=== PATIENT | male | born 1995 | race Caucasian/White ===

== ENCOUNTER 2021-02-06 12:27 | Emergency (ER) | payer MEDICAID ==
[~2021-02-06] VITALS: Ht 182.9 cm; Wt 122.0 kg
[2021-02-06 14:13] LABS: BASOPHILS % 1.1 % (0.0-2.0); EOSINOPHILS % 2.9 % (0.0-5.0); HEMATOCRIT. 47.2 % (42.0-52.0); HEMOGLOBIN. 15.9 g/dL (14.0-18.0); LYMPHOCYTES % 19.6 % (20.0-50.0); MEAN CORPUSCULAR HEMOGLOBIN 27.5 pg (28.0-32.0); MEAN CORPUSCULAR VOLUME 81.4 fL (80.0-94.0); MEAN PLATELET VOLUME 7.6 fl (7.4-10.4); NEUTROPHILS % 68.4 % (40.0-76.0); PLATELET 309 x1000/uL (130-400); RED CELL DISTRIBUTION WIDTH 13.6 % (11.6-14.6)
[2021-02-06 14:23] LABS: CHLORIDE 108 mEq/L (98-107)
[2021-02-06] MEDS ORDERED: IBUP-2029 MT (15:34)
[2021-02-06 16:10] VITALS: BP 138/96
== END 2021-02-06 16:30 | disposition home or self-care (01) ==
LOC: ER 12:27
DX: R07.89 Other chest pain (principal); R10.32 Left lower quadrant pain; I10 Essential (primary) hypertension
CPT/HCPCS: 36415; 71045; 80053; 84484; 85025; 85379; 93005; 99285

== ENCOUNTER 2021-09-08 10:20 | Emergency (ER) | payer MEDICAID ==
[~2021-09-08] VITALS: Ht 182.9 cm; Wt 136.0 kg
[~2021-09-08 10:20] MED LIST: IBUP-2029 MT
[2021-09-08 10:48] LABS: BASOPHILS % 0.7 % (0.0-2.0); EOSINOPHILS % 0.1 % (0.0-5.0); HEMOGLOBIN. 16.5 g/dL (14.0-18.0); LYMPHOCYTES % 13.6 % (20.0-50.0); MEAN CORPUSCULAR VOLUME 80.1 fL (80.0-94.0); MEAN PLATELET VOLUME 8.1 fl (7.4-10.4); MONOCYTES % 6.9 % (2.0-8.0); NEUTROPHILS % 78.7 % (40.0-76.0); PLATELET 276 x1000/uL (130-400); RED BLOOD CELL COUNT 6.12 mill/uL (4.7-6.1); RED CELL DISTRIBUTION WIDTH 13.9 % (11.6-14.6)
[2021-09-08 11:00] LABS: CHLORIDE 108 mEq/L (98-107)
[2021-09-08 11:14] LABS: ETHANOL BLOOD < 10 mg/dL
[2021-09-08] MEDS: DIVALPROEX SODIUM 250MG DR TABLET PO SCH ×2 (12:30→21:00)
[2021-09-08] MEDS: OLANZAPINE 5MG TABLET PO SCH ×2 (12:30→21:00)
[2021-09-08 12:34] LABS: CLARITY URINE CLEAR (CLEAR); COLOR URINE YELLOW (YELLOW); KETONES URINE NEGATIVE (NEGATIVE); LEUKOCYTE ESTERASE URINE NEGATIVE (NEGATIVE); NITRITE URINE NEGATIVE (NEGATIVE); OCCULT BLOOD URINE NEGATIVE (NEGATIVE); PROTEIN URINE 1+ (NEGATIVE); SPECIFIC GRAVITY URINE 1.013 (1.005-1.030); UROBILINOGEN URINE 0.2 E.U./dL (0.2-1.0)
[2021-09-08 12:55] LABS: *AMPHETAMINES SCREEN URINE NEGATIVE (NEGATIVE); *BARBITURATES SCREEN URINE NEGATIVE (NEGATIVE); *BENZODIAZEPINES SCREEN URINE NEGATIVE (NEGATIVE); *COCAINE SCREEN URINE NEGATIVE (NEGATIVE); CANNABINOID URINE SCREEN NEGATIVE (NEGATIVE); METHADONE URINE SCREEN NEGATIVE (NEGATIVE); OPIATES URINE SCREEN NEGATIVE (NEGATIVE); PHENCYCLIDINE URINE SCREEN NEGATIVE (NEGATIVE)
[2021-09-09] MEDS: DIVALPROEX SODIUM 250MG DR TABLET PO SCH (09:47)
[2021-09-09] MEDS: OLANZAPINE 5MG TABLET PO SCH (09:47)
[2021-09-09 20:56] VITALS: BP 138/87
== END 2021-09-09 21:38 ==
LOC: ER 10:20
DX: F23 Brief psychotic disorder (principal); R45.850 Homicidal ideations; I10 Essential (primary) hypertension; Z20.822 Contact with and (suspected) exposure to COVID-19
CPT/HCPCS: 36415; 80053; 80305; 80307; 80320; 80329; 81003; 85025; 99285; C9803; U0003; U0005; Z7610; G0480

== ENCOUNTER 2022-07-26 05:36 | Emergency (ER) | payer MEDICAID ==
[~2022-07-26] VITALS: Ht 182.9 cm; Wt 169.0 kg
[2022-07-26 08:18] VITALS: BP 127/86
== END 2022-07-26 08:19 | disposition home or self-care (01) ==
LOC: ER 06:00
DX: F41.9 Anxiety disorder, unspecified (principal); I49.9 Cardiac arrhythmia, unspecified; Z86.59 Personal history of other mental and behavioral disorders
CPT/HCPCS: 93005; 99283

== ENCOUNTER 2022-09-24 23:29 | Emergency (ER) | payer MEDICAID ==
[~2022-09-24] VITALS: Ht 185.4 cm; Wt 154.1 kg
[2022-09-25 00:16] LABS: BASOPHILS % 0.9 % (0.0-2.0); EOSINOPHILS % 3.2 % (0.0-5.0); HEMATOCRIT. 43.8 % (42.0-52.0); HEMOGLOBIN. 14.4 g/dL (14.0-18.0); MEAN CORPUSCULAR HEMOGLOBIN 26.5 pg (28.0-32.0); MEAN CORPUSCULAR VOLUME 80.9 fL (80.0-94.0); MEAN PLATELET VOLUME 7.4 fl (7.4-10.4); MONOCYTES % 7.7 % (2.0-8.0); NEUTROPHILS % 48.2 % (40.0-76.0); PLATELET 308 x1000/uL (130-400); RED BLOOD CELL COUNT 5.41 mill/uL (4.7-6.1); RED CELL DISTRIBUTION WIDTH 13.9 % (11.6-14.6)
[2022-09-25 00:39] LABS: CHLORIDE 105 mEq/L (98-107)
[2022-09-25 00:47] LABS: ETHANOL BLOOD < 10 mg/dL (-10)
[2022-09-25 07:34] LABS: *AMPHETAMINES SCREEN URINE NEGATIVE (NEGATIVE); *BARBITURATES SCREEN URINE NEGATIVE (NEGATIVE); *BENZODIAZEPINES SCREEN URINE NEGATIVE (NEGATIVE); *COCAINE SCREEN URINE NEGATIVE (NEGATIVE); CANNABINOID URINE SCREEN NEGATIVE (NEGATIVE); METHADONE URINE SCREEN NEGATIVE (NEGATIVE); OPIATES URINE SCREEN NEGATIVE (NEGATIVE); PHENCYCLIDINE URINE SCREEN NEGATIVE (NEGATIVE)
[2022-09-25] MEDS ORDERED: NICOTINE 14MG PATCH TD ONE ×2 (10:00→19:30)
[2022-09-25] MEDS: OLANZAPINE 5MG TABLET ODT PO SCH ×2 (12:41→17:00)
[2022-09-25] MEDS ORDERED: OLANZAPINE 5MG TABLET ODT PO SCH (17:00)
[2022-09-25] MEDS ORDERED: DIPHENHYDRAMINE 50MG/ML VIAL IM ONE (20:45)
[2022-09-25] MEDS ORDERED: OLANZAPINE 10 MG/VIAL IM ONE (21:45)
[2022-09-26] MEDS: OLANZAPINE 5MG TABLET ODT PO SCH (09:20)
[2022-09-26 14:26] VITALS: BP 125/87
[2022-09-26] MEDS ORDERED: OLANZAPINE 5MG TABLET ODT PO SCH (17:00)
== END 2022-09-26 14:33 ==
LOC: ER 23:29
DX: R44.0 Auditory hallucinations (principal); Z86.59 Personal history of other mental and behavioral disorders
CPT/HCPCS: 36415; 80048; 80305; 80307; 80320; 80329; 85025; 87426; 99285; C9803; J1200; J3490; G0480